=== PATIENT | female | born 1940 | race Caucasian/White ===

== ENCOUNTER 2016-03-27 17:35 | Inpatient (IN) | payer OTHER ==
[~2016-03-27] VITALS: Ht 170.2 cm; Wt 78.0 kg
[2016-03-27 17:48] VITALS: BP 200/91
--- NOTE | 2016-03-27 20:35 | NUR ---
Dru ram in [facility] - 03/27/16 at 2036 by MEDDM AMBULATED TO ER BED 4
--- NOTE | 2016-03-27 20:36 | NUR ---
BIB WHEELCHAIR TO ER BED 4
[2016-03-27] MEDS ORDERED: NACL 0.9% 1,000 ML IV ONE (20:50)
--- NOTE | 2016-03-27 20:56 | NUR ---
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 PT SENT FROM PMD D/T HNT, AND ABNORMAL EKG. DENIES CHEST PAIN AT THE MOMENT OR SOB. ER MD NOTIFIED.
[2016-03-27] MEDS ORDERED: ASPIRIN 81 MG TAB.CHEW PO ONE (21:00)
--- NOTE | 2016-03-27 21:28 | NUR ---
Patient will be admitted to care of DR GUNN. Admited to TELEMETRY . Will go to room 109 B. Belongings list completed. Report to SARANYA MART.
--- NOTE | 2016-03-27 21:46 | NUR ---
DR AMES NOTIFIED OF INCREASED IN BP. PT ANXIOUS D/T STAYING IN HOSPITAL. NO S/S OF DISTRESS AT THIS MOMENT.
--- NOTE | 2016-03-27 21:48 | NUR ---
PT TRANSPORTED TO THE FLOOR ROOM 109 B TELEMETRY BY SARANYA HOUSER AND PAULINA HOLLINGSWORTH. STRATEGY PLANNING CONSULTANT IN BED. NO S/S OF DISTRESS UP TO THIS POINT.
[2016-03-27 21:50] VITALS: BP 142/83
[2016-03-27] MEDS ORDERED: HYDROcodone/APAP 5/325 MG 1 TAB TAB PO PRN (21:50)
[2016-03-27] MEDS ORDERED: ONDANSETRON 4 MG/2 ML VIAL IVP PRN (21:50)
[2016-03-27] MEDS ORDERED: ACETAMINOPHEN 325 MG TAB PO PRN (21:50)
--- NOTE | 2016-03-27 21:50 | NUR ---
Admitted from ER TO TELEMETRY UNIT , with chief complaint of HIGH BLOOD PRESSURE, 76 y/o ,Female, Cooperative, A/OX4. CLAIMED SHE WENT TO HER PRIVATE PHYSICIAN, HER BP GOES UP TO SBP - 200. SHE WAS GIVEN MED TO LOWER BP BUT DOES NOT KNOW THE NAME OF THE MEDICATION AND WAS ADVISED TO GO TO ER FOR FURTHER MANAGEMENT. LUNGS CLEAR ON BILATERAL AUSCULTATION. IV OF NS INFUSING AT 100 ML/HR LEFT AC G20. ABLE TO AMBULATE WITH ASSISTANCE. USES A CANE AT HOME TO WALK. HEAD TO TOE ASSESSMENT DONE WITH CHARGE NURSE AYAN, SKIN INTACT. DENIES PAIN 0/10. SINUS RHYTHM ON MONITOR WITH 1ST DEGREE AV BLOCK. CAREGIVER AT THE BEDSIDE. oriented to call light, bed, phone,television, bathroom, smoking policy,visiting hours, procedures, ID bracelet on. Belongings list checked.
--- NOTE | 2016-03-27 21:50 | NUR ---
Patient's Plan of Care was discussed and reviewed with BUSINESS UNIT MANAGER: BRITTNY MATT
--- NOTE | 2016-03-27 22:15 | NUR ---
ATE 100% OF MEAL TRAY.
[2016-03-28] VITALS: BP 139/78
--- NOTE | 2016-03-28 | NUR ---
SLEEPING COMFORTABLY IN BED.
[2016-03-28 04:00] VITALS: BP 148/84
--- NOTE | 2016-03-28 04:00 | NUR ---
ASSISTED TWICE TO BR TO VOID, BACK TO BED AFTER VOIDING, SAFETY MAINTAINED.
--- NOTE | 2016-03-28 06:30 | NUR ---
NO COMPLAINT OF PAIN DURING SHIFT, WILL ENDORSE TO AM NURSE FOR CONTINUITY OF CARE.
--- NOTE | 2016-03-28 07:15 | NUR ---
ENDORSED TO AM NURSE FOR CONTINUITY OF CARE.
--- NOTE | 2016-03-28 07:16 | NUR ---
RECEIVED REPORT FROM HOTEL OR MOTEL ROOM SERVICE SUPERVISOR RN. PT IS AWAKE, A/O X 4, AMBULATORY WITH ASSIST BY CANE. NO S/S OF ACUTE CARDIAC/RESPIRATORY DISTRESS. LEFT HAND IV INTACT AND PATENT. SKIN IS INTACT. SAFETY MEASURES IN PLACE, CALL LIGHT WITHIN REACH. WILL CONTINUE PLAN OF CARE AND CONTINUE TO MONITOR.
[2016-03-28 07:58] VITALS: BP 147/93
--- NOTE | 2016-03-28 08:11 | NUR ---
PATIENT HAS BEEN SCREENED AND CATEGORIZED MODERATE NUTRITION RISK. PATIENT WILL BE SEEN WITHIN 3-5 DAYS OF ADMISSION. 03/30/16-04/01/[address]
[2016-03-28] MEDS ORDERED: ASPIRIN 325 MG TAB PO SCH (09:00)
[2016-03-28] MEDS ORDERED: ENOXAPARIN 40 MG/0.4 ML SYR SUBQ SCH (09:00)
--- NOTE | 2016-03-28 09:50 | NUR ---
RECEIVED INFORMATION ON MEDICATIONS PT IS TAKING FOR HTN AND HYPERLIPIDEMIA FROM [facility], PT'S PRIMARY CARE OFFICE. MEDICATIONS RECONCILED, AWAITING FOR MD TO APPROVED AND CONTINUE HOME MEDS DURING HOSPITAL STAY.
[2016-03-28] MEDS ORDERED: NORVASC5 MG PO (10:14)
[2016-03-28] MEDS ORDERED: CATAPRES0.1 MG PO (10:14)
[2016-03-28] MEDS ORDERED: DIOVAN320 MG PO (10:14)
--- NOTE | 2016-03-28 10:17 | NUR ---
PT TOLERATED AM MEDS WELL. PT IS RESTING AND COMBING HER HAIR. NO S/S OF ACUTE DISTRESS OR DISCOMFORT. CALL LIGHT WITHIN REACH, WILL CONTINUE TO MONITOR.
--- NOTE | 2016-03-28 11:45 | NUR ---
PT BEING SEEN BY DR LIZAMA.
[2016-03-28] MEDS ORDERED: cloNIDine 0.1 MG TAB PO PRN (11:50)
[2016-03-28 12:00] VITALS: BP 144/68
--- NOTE | 2016-03-28 12:14 | NUR ---
CM NOTE PER ELECTRICIAN RESEARCH AMALIA EXT [id number], REVIEWS SHOULD GO TO BOTH [facility] AND [facility]. INITIAL REVIEW SENT TO [facility] FAX# [phone] PH# [phone] AND TO [facility] FAX# [phone] PH# [phone] EN[facility] EXT [id number], AMBAR # [phone]
--- NOTE | 2016-03-28 12:45 | NUR ---
DISCHARGE INSTRUCTIONS PROVIDED, PT VERBALIZED UNDERSTANDING. PT SIGNED DISCHARGE PAPERWORK, PROVIDED A COPY. ARM BANDS REMOVED, TELE MONITOR REMOVED, IV REMOVED AND INTACT. PT HAS NO S/S OF ACUTE DISTRESS OR DISCOMFORT. PT IS STABLE. WHEELCHAIRED PT TO FRONT LOBBY TO BE PICKED UP BY HER SON, LAURA.
[2016-03-29] MEDS ORDERED: amLODIPine 5 MG TAB PO SCH (09:00)
[2016-03-29] MEDS ORDERED: VALSARTAN 80 MG TAB PO SCH (09:00)
== END 2016-03-28 12:45 | disposition home or self-care (01) | DRG 305 ==
LOC: MED 17:47 → MTU 21:24
PROVIDERS: ADMIT Internal Medicine Pulmonary Disease; ATTEND Internal Medicine Pulmonary Disease
DX: I10 Essential (primary) hypertension (principal); E86.0 Dehydration; M19.90 Unspecified osteoarthritis, unspecified site; Z98.51 Tubal ligation status; Z90.710 Acquired absence of both cervix and uterus; Z79.899 Other long term (current) drug therapy

== ENCOUNTER 2017-05-09 12:52 | Emergency (ER) | payer OTHER ==
[~2017-05-09] VITALS: Ht 170.2 cm; Wt 79.4 kg
[~2017-05-09 12:52] MED LIST: AMLO5TAB PO; CLON0.1T42 PO; VALS320T2 PO
[2017-05-09 12:54] VITALS: BP 128/48
--- NOTE | 2017-05-09 13:50 | NUR ---
Patient to bed 12 at this time.
--- NOTE | 2017-05-09 14:00 | NUR ---
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 CAREGIVER STATES PT WAS WALKING WITH WALKER, MISS A STEP, AND FELL BACK ON CEMENT FLOOR AND LANDED ON HER RIGHT SIDE. PT DENIES KO OR LOC. PT IS AOX4. GCS=15. NIO ACUTE NEURO DEFICITS. PT REPORTS OF 10/10 RIGHT SIDED BODY PAIN. BRUISING NOTED TO LOWER BACK. PT DENIES ANY SOB OR CP. SKIN INTACT. RR ARE EVEN AND UNLABORED. NO ACUTE DISTRESS. ER MD AWARE OF PT STATUS. WILL CONTINUE TO MONITOR.
[2017-05-09] MEDS ORDERED: HYDROcodone/APAP 5/325 MG 1 TAB TAB PO ONE (14:30)
[2017-05-09 17:19] VITALS: BP 162/70
--- NOTE | 2017-05-09 17:19 | NUR ---
Patient discharged with v/s stable. Written and verbal after care instructions given and explained. Patient alert, oriented and verbalized understanding of instructions. Wheel Chair Assisted with to car. All questions addressed prior to discharge. ID band removed. Patient advised to follow up with PMD. Rx of Brashear 5 and Cyclobenzaprine given. Patient educated on indication of medication including possible reaction and side effects. Opportunity to ask questions provided and answered.
== END 2017-05-09 17:19 | disposition home or self-care (01) ==
LOC: MED 12:52
DX: S22.41XA Multiple fractures of ribs, right side, initial encounter for closed fracture (principal); W18.39XA Other fall on same level, initial encounter; Y93.89 Activity, other specified; Y92.89 Other specified places as the place of occurrence of the external cause; Y99.8 Other external cause status
CPT/HCPCS: 71101; 72080; 73130; 82948; 93005; 99285